=== PATIENT | male | born 1990 | race American Indian/Alaskan Native ===

== ENCOUNTER 2018-11-01 09:45 | Emergency (ER) | payer SELFPAY ==
--- NOTE | 2018-11-01 10:06 | Emergency Department Report ---
ED Upper Extremity Inj HPI - General Chief Complaint: Extremity Injury, Upper Stated Complaint: RT THUMB Time Seen by Provider: 11/01/18 10:06 Source: patient Mode of arrival: Ambulatory Limitations: No Limitations - History of Present Illness Initial Comments: Patient is a pleasant 28-year-old male who comes to the ER after playing basketball week ago and still moving his right thumb. He is concerned that it is broken. There is no other injury. -: Sudden, week(s) Other Extremity Injury: Fingers: Right Other Injuries: none Place: home Improves With: none Worsens With: none Context: sports-related injury Associated Symptoms: denies other symptoms - Related Data Allergies Allergy/AdvReac Type Severity Reaction Status Date / Time No Known Allergies Allergy Unverified 11/01/18 10:03 ED Review of Systems ROS: Stated complaint: RT THUMB Other details as noted in HPI Comment: All other systems reviewed and negative Constitutional: denies: see HPI Eyes: denies: eye pain ENT: denies: ear pain Respiratory: denies: cough Cardiovascular: denies: palpitations Endocrine: denies: flushing Gastrointestinal: denies: nausea Genitourinary: denies: urgency Musculoskeletal: as per HPI. denies: back pain Skin: denies: rash Neurological: denies: headache Psychiatric: denies: anxiety Hematological/Lymphatic: denies: easy bleeding ED Past Medical Hx - Past Medical History Additional medical history: bronchitis - Surgical History Past Surgical History?: No - Social History Smoking Status: Current Every Day Smoker Substance Use Type: Alcohol ED Physical Exam - General Limitations: No Limitations General appearance: alert - Head Head exam: Present: atraumatic - Eye Eye exam: Present: normal appearance, PERRL - ENT ENT exam: Present: mucous membranes moist - Neck Neck exam: Present: normal inspection - Cardiovascular Cardiovascular Exam: Present: regular rate - GI/Abdominal GI/Abdominal exam: Present: soft - Rectal Rectal exam: Present: deferred - Extremities Exam Extremities exam: Present: normal capillary refill - Expanded Upper Extremity Exam Right Forearm Wrist exam: Present: normal inspection Hand Wrist exam: Present: normal inspection, other (r thumb soft tissue swelling with full rom, rapid cap refill. ulnar med and rad nerves intact. ) Vascular: Present: normal capillary refill ED Course Vital Signs 11/01/18 10:03 Temperature 98.2 F Pulse Rate 74 Respiratory 18 Rate Blood Pressure 117/58 [Left] O2 Sat by Pulse 97 Oximetry ED Medical Decision Making - Radiology Data Radiology results: report reviewed, image reviewed nap - Medical Decision Making xray neg full rom neurovasc intact given swelling will immob for few days - treat with motrin follow up prn - Differential Diagnosis ro fx Critical care attestation.: If time is entered above; I have spent that time in minutes in the direct care of this critically ill patient, excluding procedure time. ED Disposition Clinical Impression: Thumb contusion Disposition: TO HOME OR SELFCARE Is pt being admited?: No Does the pt Need Aspirin: No Condition: Stable Instructions: Finger Sprain (ED) Additional Instructions: frog for 3 days ice rest elevate motrin for pain and swelling follow up with ortho if persists diet as tolerated Referrals: JERAMIE GORMAN MD [Primary Care Provider] - 3-5 Days Time of Disposition: 11:28
--- NOTE | 2018-11-01 10:41 | XRay Report ---
LEFT HAND, 3 views: History: Left thumb pain. The bony architecture is intact. Bony alignment is normal. No soft tissue abnormalities are seen. The joint spaces appear preserved. IMPRESSION: Normal left hand.
[2018-11-01 12:13] VITALS: BP 112/60
== END 2018-11-01 12:12 | disposition home or self-care (01) ==
LOC: ED 09:45
DX: S60.011A Contusion of right thumb without damage to nail, initial encounter (principal); X50.9XXA Other and unspecified overexertion or strenuous movements or postures, initial encounter; Y93.67 Activity, basketball; Y99.8 Other external cause status; Y92.019 Unspecified place in single-family (private) house as the place of occurrence of the external cause
CPT/HCPCS: 99283

== ENCOUNTER 2018-11-09 00:59 | Inpatient (IN) | payer SELFPAY ==
[2018-11-09 02:20] LABS: Hematocrit 49.4 % (35.5-45.6); Hemoglobin 16.8 gm/dl (11.8-15.2); Mean Corpuscular HGB Conc 34 % (32-34); Mean Corpuscular Volume 95 fl (84-94); Platelet Count 215 K/mm3 (140-440); Red Blood Count 5.21 M/mm3 (3.65-5.03); Red Cell Distribution Width 13.4 % (13.2-15.2)
--- NOTE | 2018-11-09 02:50 | XRay Report ---
FINAL REPORT EXAM: XRAY CHEST 2 VIEWS HISTORY: CHEST PAIN TECHNIQUE: PA and lateral views of the chest were submitted. FINDINGS: The lungs are clear. Pleural fluid is not seen. The heart size and vascularity appear normal. The ske letal structures are well-maintained. IMPRESSION: Within normal limits.
[2018-11-09 03:33] LABS: Alanine Aminotransferase 23 units/L (7-56); Albumin 3.8 g/dL (3.9-5); BUN/Creatinine Ratio 16; Blood Urea Nitrogen 14 mg/dL (9-20); Hemolysis Index 82
[2018-11-09 03:50] LABS: Chol/HDL Ratio 2.94 %; HDL Cholesterol 54 mg/dL (40-59); LDL Cholesterol,Direct 98 mg/dL (50-130)
[2018-11-09] MEDS ORDERED: NITROSTAT SL ONE (04:29)
[2018-11-09] MEDS ORDERED: BABY ASPIRIN PO ONE (04:30)
--- NOTE | 2018-11-09 04:40 | Emergency Department Report ---
ED Chest Pain HPI - General Chief Complaint: Chest Pain Stated Complaint: CP/BACK PAIN Time Seen by Provider: 11/09/18 03:55 Source: patient Mode of arrival: Ambulatory Limitations: No Limitations - History of Present Illness Initial Comments: 28-year-old male presents to the emergency department with complaint of chest and back pain. Patient says that it started off with back pain 2 days ago, Thursday. He denies any trauma or event where he pulled out his back. Yesterday he still felt like the back was painful but started having some midsternal to left-sided chest pain at that time. It is a dull but intense pain but he describes it as 7 out of 10 in intensity. There are no known aggravating or alleviating factors. He tried some ibuprofen for his pain without relief. Associated with some shortness of breath. Denies any nausea, vomiting or diaphoresis. He is a tobacco smoker but denies any illicit drug use. No recent travel or sick contacts at home. He denies any family history of early cardiac disease or events. - Related Data Home Medications Medication Instructions Recorded Confirmed Last Taken No Known Home Medications [No 11/09/18 11/09/18 Unknown Reported Home Medications] Allergies Allergy/AdvReac Type Severity Reaction Status Date / Time No Known Allergies Allergy Verified 11/09/18 05:21 Heart Score - HEART Score History: Slightly suspicious EKG: Non-specific Age: < 45 Risk factors: 1-2 risk factors Troponin: > 3x normal limit HEART Score: 4 - Critical Actions Critical Actions: 4-6 pts:12-16.6% risk of adverse cardiac event. Should be admitted ED Review of Systems ROS: Stated complaint: CP/BACK PAIN Other details as noted in HPI Comment: All other systems reviewed and negative Constitutional: denies: chills, fever Eyes: denies: eye pain, vision change ENT: denies: ear pain, throat pain Respiratory: shortness of breath. denies: cough Cardiovascular: chest pain. denies: palpitations Gastrointestinal: denies: abdominal pain, vomiting Genitourinary: denies: dysuria, discharge Musculoskeletal: back pain. denies: arthralgia Skin: denies: rash, lesions Neurological: denies: headache, weakness ED Past Medical Hx - Past Medical History Additional medical history: bronchitis - Social History Smoking Status: Current Every Day Smoker Substance Use Type: Alcohol - Medications Home Medications: Home Medications Medication Instructions Recorded Confirmed Last Taken Type No Known Home Medications [No 11/09/18 11/09/18 Unknown History Reported Home Medications] ED Physical Exam - General Limitations: No Limitations - Other Other exam information: GENERAL: The patient is well-developed well-nourished. HEENT: Normocephalic. Atraumatic. Patient has moist mucous membranes. EYES: Extraocular motions are intact. NECK: Supple. Trachea is midline. CHEST/LUNGS: Clear to auscultation. There is no respiratory distress noted. HEART/CARDIOVASCULAR: Regular. There is no tachycardia. There is no obvious murmur. ABDOMEN: Abdomen is soft, nontender. Patient has normal bowel sounds. There is no abdominal distention. SKIN: Skin is warm and dry. NEURO: The patient is awake, alert, and oriented. The patient is cooperative. The patient has no focal neurologic deficits. The patient has normal speech. MUSCULOSKELETAL: There is no tenderness or deformity. There is no limitation range of motion. There is no evidence of acute injury. ED Course Vital Signs 11/09/18 11/09/18 11/09/18 01:07 01:17 04:18 Temperature 98.8 F Pulse Rate 82 Respiratory 18 Rate Blood Pressure 126/72 O2 Sat by Pulse 71 L 100 100 Oximetry 11/09/18 11/09/18 11/09/18 04:31 04:45 04:50 Temperature Pulse Rate 80 81 77 Respiratory 18 23 Rate Blood Pressure 144/80 134/70 136/68 O2 Sat by Pulse 99 99 Oximetry 11/09/18 11/09/18 11/09/18 04:58 05:01 05:15 Temperature Pulse Rate 71 71 Respiratory 18 19 21 Rate Blood Pressure 135/70 126/69 O2 Sat by Pulse 99 95 Oximetry 11/09/18 11/09/18 05:31 05:45 Temperature Pulse Rate 76 74 Respiratory 15 14 Rate Blood Pressure 131/72 133/77 O2 Sat by Pulse 96 98 Oximetry - Consultations Consultation #1: I spoke with the [employer] information technology intern, Dr. Molina, regarding the patient's elevated troponin levels and EKG showing some nonspecific changes. He agrees that it does not appear consistent with an ST elevation NC and does agree with the plan for heparin. 11/09/18 06:06 RACHELLE score - Rachelle Score Age > 65: (0) No Aspirin use within the Past 7 Days: (0) No 3 or more CAD Risk Factors: (0) No 2 or more Angina events in past 24 hrs: (1) Yes Known CAD with more than 50% Stenosis: (0) No Elevated Cardiac Markers: (1) Yes ST Deviation Greater than 0.5mm: (1) Yes RACHELLE Score: 3 ED Medical Decision Making - Lab Data Result diagrams: 11/09/18 02:01 11/09/18 02:01 - EKG Data -: EKG Interpreted by Me EKG shows normal: sinus rhythm, axis, intervals, QRS complexes, ST-T waves (nonspecific ST-T changes to the inferior and lateral leads) Rate: normal - EKG Data When compared to previous EKG there are: previous EKG unavailable Interpretation: nonspecific ST-T wave gisele - Radiology Data Radiology results: image reviewed interpreted by me: Chest x-ray does not show any pneumothorax, pleural effusion, pneumonia or obvious focal consolidation. - Medical Decision Making Patient presents with a two-day history of some left-sided back pain and a one day history of left-sided chest pain. EKG does not show ST elevation NC but could have a an appearance more consistent with pericarditis. However the patient's physical examination and complaints do not sound as consistent with pericarditis. The patient's only risk factor for coronary artery disease is tobacco use. His first troponin to come back elevated and are trending slightly upwards. Patient says that he did not get much relief from a sublingual nitroglycerin. He was placed on a heparin drip and will be admitted to the hospital for further evaluation and cardiology consultation. Patient was accepted for admission by the hospitalist, Dr. Barajas. - Differential Diagnosis NC, PE, Pericarditis, Costochondritis Critical Care Time: Yes Critical care time in (mins) excluding proc time.: 35 Critical care attestation.: If time is entered above; I have spent that time in minutes in the direct care of this critically ill patient, excluding procedure time. Critical care time spent on this patient during his initial evaluation, multiple re-evaluations, ordering and interpretation of labs and imaging, discussion with the radiologist and hospitalist services. Critical Care Time: 35 minutes ED Disposition Clinical Impression: NSTEMI (non-ST elevated myocardial infarction), Acute chest pain, Elevated troponin Disposition: OP ADMIT IP TO THIS HOSP Is pt being admited?: Yes Condition: Serious Instructions: Chest Pain (ED) Referrals: MARYCHUY ISRAEL MD [Primary Care Provider] - 3-5 Days Time of Disposition: 06:22
[2018-11-09] MEDS ORDERED: HEPARIN 10,000 UNITS/10 ML IV ONE (05:18)
[2018-11-09 05:41] LABS: INR 0.92 (0.87-1.13)
[2018-11-09 05:42] LABS: Partial Thromboplastin Time 25.4 Sec. (24.2-36.6)
--- NOTE | 2018-11-09 05:46 | History and Physical Report ---
History of Present Illness Date of examination: 11/09/18 History of present illness: 28-year-old male with no medical problems and comes emergency room with complaints of chest pain. His symptoms started on Thursday when he had left back pain, all day Thursday started having chest pain. Chest pain is in the left chest, throbbing, constant, no radiation, intensity 6/10, cannot identify exacerbating factor. He had persistent shortness of breath, diaphoresis, nausea. Admits that he is left arm went numb Review of systems Constitutional: no weight loss, chills, fever Ears, eyes, nose, mouth and throat: no nasal congestion, no nasal discharge, no sinus pressure, no vision change, no red eye. Neck: No neck pain or rigidity. Cardiovascular: no palpitations, +chest pain Respiratory: no cough, +shortness of breath Gastrointestinal: no hematochezia, abdominal pain Genitourinary : no frequency , no hematuria Musculoskeletal: no joint swelling or muscle ache Integumentary: no rash, no pruritis Neurological: no parathesias, no focal weakness Endocrine: no cold or heat intolerance, no polyuria or polydipsia Hematologic/Lymphatic: no easy bruising, no easy bleeding, no gland swelling Allergic/Immunologic: no urticaria, no angioedema. PAST MEDICAL HISTORY: None PAST SURGICAL HISTORY: None SOCIAL HISTORY: + alcohol, marijuana,+ tobacco FAMILY HISTORY: Hypertension Medications and Allergies Allergies Allergy/AdvReac Type Severity Reaction Status Date / Time No Known Allergies Allergy Verified 11/09/18 05:21 Home Medications Medication Instructions Recorded Confirmed Last Taken Type RX: Aspirin [Lo-Dose Aspirin EC] 81 mg PO DAILY #90 tablet. 11/09/18 Unknown Rx Active Meds: Active Medications Heparin Sodium/Sodium Chloride (Heparin/ 0.45% Nacl-25,000 Unit/500 Ml) 25,000 unit in 500 mls @ 20 mls/hr IV TITRATE [facility]; Protocol Last Admin: 11/09/18 05:39 Dose: 15 units/kg/hr, 24.33 mls/hr Documented by: Exam - Physical Exam Narrative exam: General Apperance: The patient lying in bed, breathing comfortable HEENT: Normocephalic, atraumatic. Pupils equally round and reactive to light, EOMI, no sclericterus or JVD or thyromegaly or nodule. , no carotid bruit, mucous membranes moist, no exudate or erythema Heart: S1-S2, regular is rhythm Lungs: Clear to auscultation bilaterally, breathing comfortable Abdomen: Positive bowel sounds, soft, nontender, nondistended, no organomegaly Extremities: No edema cyanosis clubbing Skin: no rash, nodule, warm and dry Neuro: cranial nerves 2-12 intact, speech is fluent, motor/sensory intact - Constitutional Vitals: Temp Pulse Resp BP Pulse Ox 98.8 F 71 21 126/69 95 11/09/18 01:17 11/09/18 05:15 11/09/18 05:15 11/09/18 05:15 11/09/18 05:15 Results - Labs CBC & Chem 7: 11/09/18 02:01 11/09/18 02:01 Labs: Abnormal lab results 11/09/18 11/09/18 11/09/18 Range/Units 02:01 02:01 04:55 RBC 5.21 H (3.65-5.03) M/mm3 Hgb 16.8 H (11.8-15.2) gm/dl Hct 49.4 H (35.5-45.6) % MCV 95 H (84-94) fl Sodium 136 L (137-145) mmol/L Carbon Dioxide 16 L (22-30) mmol/L AST 50 H (5-40) units/L Troponin T 0.421 H* 0.494 H* (0.00-0.029) ng/mL Albumin 3.8 L (3.9-5) g/dL - Imaging and Cardiology EKG: image reviewed Chest x-ray: report reviewed Assessment and Plan Assessment Chestt pain doubt NSTMI Plan Admit to medicine Check cardiac enzymes, cardiology is consulted to see the patient Check CT chest abdomen and pelvis, urine toxicology Heparin drip was started and the patient Start aspirin, DVT prophylaxis
[2018-11-09] MEDS ORDERED: TYLENOL PO PRN (05:47)
[2018-11-09] MEDS ORDERED: ZOFRAN IV PRN (05:47)
[2018-11-09] MEDS ORDERED: SODIUM CHLORIDE FLUSH SYRINGE 10 ML IV PRN (05:47)
[2018-11-09] MEDS ORDERED: HEPARIN/ 0.45% NACL-25,000 UNIT/500 ML 25,000 UNIT/500 ML BAG IV SCH (06:00)
[2018-11-09] MEDS ORDERED: NACL 0.9% 1000 ML 1,000 ML IV SCH (06:00)
[2018-11-09] MEDS ORDERED: MORPHINE ONE (07:19)
[2018-11-09 07:26] LABS: Amphetamine Screen,Urine PRESUMPTIVE NEGATIVE; Benzodiazepines Screen,Urine PRESUMPTIVE NEGATIVE; Cocaine Screen,Urine PRESUMPTIVE NEGATIVE; Methadone Screen,Urine PRESUMPTIVE NEGATIVE; Opiate Screen,Urine PRESUMPTIVE NEGATIVE
[2018-11-09] MEDS: MORPHINE IV PRN ×2 (07:27→15:31)
[2018-11-09 07:39] LABS: Cannabinoid Screen,Urine PRESUMPTIVE POSITIVE
--- NOTE | 2018-11-09 08:10 | Cat Scan Report ---
FINAL REPORT EXAM: CT ANGIO CHEST HISTORY: cp TECHNIQUE: CT imaging obtained through the chest in pulmonary angiographic phase following intraveno us administration of contrast. Transaxial, Coronal and sagittal reformats with maximal intensity proj ections are provided. PRIORS: Chest radiographs of the same date FINDINGS: Normal caliber main pulmonary artery. Well opacified pulmonary arterial tree. No pulmonary embolism. No pericardial effusion. Thoracic aorta is normal in course and caliber. No periaortic fluid or stranding. No pneumothorax, effusion or focal airspace disease. The central airways are patent. No bronchiectasi s. Imaged portion of the upper abdomen is unremarkable. The superficial soft tissues are unremarkable. No acute bony abnormality or worrisome osseous lesions identified. IMPRESSION: No pulmonary embolism or other acute finding.
--- NOTE | 2018-11-09 08:14 | Cat Scan Report ---
FINAL REPORT EXAM: CT ABDOMEN PELVIS W CON HISTORY: cp TECHNIQUE: CT images are acquired through the Abdomen and Pelvis in venous and delayed phases follow ing intravenous administration of contrast. Transaxial, coronal and sagittal reformations are provide d. PRIORS: None FINDINGS: Partially visualized intrathoracic contents are unremarkable. The liver, gallbladder, pancreas, spleen, and adrenal glands are unremarkable. Kidneys show no worrisome lesions, hydronephrosis, or calculi. Urinary bladder is unremarkable. Small and large bowel are normal in caliber. Appendix is normal. No free air, free fluid, or lymphade nopathy identified. Aorta is normal in course and caliber. Superficial soft tissues are unremarkable. No acute or aggressive appearing skeletal findings. IMPRESSION: No acute findings in the abdomen or pelvis.
--- NOTE | 2018-11-09 09:10 | Consultation ---
History of Present Illness Consult date: 11/09/18 Requesting physician: DAVY THOMAS Consult reason: elevated troponin History of present illness: The pt is a 28-year-old male with a past medical history of tobacco use and marijuana use. He is previously unknown to our practice. He presented with complaints of chest pain for 2 days prior to arrival. His symptoms started on Thursday when he developed upper back pain. He began having chest pain on Thursday. He describes the chest pain as a left-sided constant throbbing pain which is sometimes aggravated by deep inspiration and coughing. He denies any SOB, palpitations, n/v, diaphoresis, dizziness or syncope. He denies any prior cardiac issues, including CAD, AMI or HF. Past History Past Medical History: No medical history Past Surgical History: No surgical history Social history: smoking, other (marijuana use) Medications and Allergies Allergies Allergy/AdvReac Type Severity Reaction Status Date / Time No Known Allergies Allergy Verified 11/09/18 05:21 Home Medications Medication Instructions Recorded Confirmed Last Taken Type No Known Home Medications [No 11/09/18 11/09/18 Unknown History Reported Home Medications] Active Meds: Active Medications Acetaminophen (Tylenol) 650 mg PO Q4H PRN PRN Reason: Pain MILD(1-3)/Fever >100.5/MOREAU Heparin Sodium/Sodium Chloride (Heparin/ 0.45% Nacl-25,000 Unit/500 Ml) 25,000 unit in 500 mls @ 20 mls/hr IV TITRATE [facility]; Protocol Last Admin: 11/09/18 05:39 Dose: 15 units/kg/hr, 24.33 mls/hr Documented by: Sodium Chloride (Nacl 0.9% 1000 Ml) 1,000 mls @ 150 mls/hr IV DIRECT [facility]BD[facility] Last Admin: 11/09/18 06:00 Dose: 150 mls/hr Documented by: Morphine Sulfate (Morphine) 2 mg IV Q4H PRN PRN Reason: Pain, Moderate (4-6) Last Admin: 11/09/18 07:27 Dose: 2 mg Documented by: Ondansetron HCl (Zofran) 4 mg IV Q8H PRN PRN Reason: Nausea And Vomiting Sodium Chloride (Sodium Chloride Flush Syringe 10 Ml) 10 ml IV BID [facility]BD[facility] Sodium Chloride (Sodium Chloride Flush Syringe 10 Ml) 10 ml IV PRN PRN PRN Reason: LINE FLUSH Review of Systems Constitutional: no weight loss, no weight gain, no fever, no chills, no sweats Ears, nose, mouth and throat: no ear pain, no nose pain, no sinus pressure, no sinus pain Cardiovascular: chest pain, no orthopnea, no palpitations, no rapid/irregular heart beat, no edema, no syncope, no lightheadedness, no shortness of breath, no dyspnea on exertion, no high blood pressure, no leg edema, no decreased exercise tolerance Respiratory: pain on inspiration, no cough, no shortness of breath, no dyspnea on exertion, no congestion, no wheezing Gastrointestinal: no abdominal pain, no nausea, no vomiting, no diarrhea, no constipation, no change in bowel habits Genitourinary Male: no dysuria, no hematuria, no flank pain, no discharge, no urinary frequency, no urinary hesitancy Musculoskeletal: no neck stiffness, no neck pain, no shooting arm pain, no arm numbness/tingling, no low back pain, no shooting leg pain Integumentary: no rash, no pruritis, no redness, no sores, no wounds Neurological: no head injury, no paralysis, no weakness, no parathesias, no numbness, no tingling, no seizures, no syncope Psychiatric: no anxiety Endocrine: no cold intolerance, no heat intolerance Hematologic/Lymphatic: no easy bruising, no easy bleeding Physical Examination Vital Signs Pulse Ox 71 L 11/09/18 01:07 General appearance: no acute distress HEENT: Positive: PERRL, Normocephaly, Mucus Membranes Moist Neck: Positive: neck supple, trachea midline Cardiac: Positive: Reg Rate and Rhythm, S1/S2 Lungs: Positive: clear to auscultation Neuro: Positive: Grossly Intact, Cranial Nerve 2-12 Intact Abdomen: Positive: Soft. Negative: Tender Male genitourinary: Negative: tender Skin: Negative: Rash, Wound Musculoskeletal: No Pain Extremities: Absent: edema Results 11/09/18 02:01 11/09/18 02:01 Cardiac Enzymes 11/09/18 Range/Units 02:01 AST 50 H (5-40) units/L Coagulation 11/09/18 Range/Units 05:18 PT 12.9 (12.2-14.9) Sec. INR 0.92 (0.87-1.13) APTT 25.4 (24.2-36.6) Sec. Lipids 11/09/18 Range/Units 02:01 Triglycerides 58 (2-149) mg/dL Cholesterol 159 (50-199) mg/dL HDL Cholesterol 54 (40-59) mg/dL Cholesterol/HDL Ratio 2.94 % CBC 11/09/18 Range/Units 02:01 WBC 9.7 (4.5-11.0) K/mm3 RBC 5.21 H (3.65-5.03) M/mm3 Hgb 16.8 H (11.8-15.2) gm/dl Hct 49.4 H (35.5-45.6) % Plt Count 215 (140-440) K/mm3 Comprehensive Metabolic Panel 11/09/18 Range/Units 02:01 Sodium 136 L (137-145) mmol/L Potassium 4.6 (3.6-5.0) mmol/L Chloride 104.6 (98-107) mmol/L Carbon Dioxide 16 L (22-30) mmol/L BUN 14 (9-20) mg/dL Creatinine 0.9 (0.8-1.5) mg/dL Glucose 95 (75-100) mg/dL Calcium 9.0 (8.4-10.2) mg/dL AST 50 H (5-40) units/L ALT 23 (7-56) units/L Alkaline Phosphatase 67 (35-129) units/L Total Protein 7.4 (6.3-8.2) g/dL Albumin 3.8 L (3.9-5) g/dL - Imaging and Cardiology Echo: pending EKG: report reviewed, image reviewed EKG interpretations - Telemetry EKG Rhythm: Sinus Rhythm - EKG Sinus rhythms and dysrhythmias: sinus rhythm Repolarization changes or abnormalities: nonspecific abnormality, ST segment, and/or T wave Assessment and Plan Obtain echo to eval for pericardial effusion. Coronary angiography recommended in setting of elevated troponin and abnormal ECG. Indications, potential risks and benefits of LHC reviewed with pt and he is agreeable to proceed. Await findings. The patient has been seen in conjunction with Dr. Duncan who agrees with the assessment and plan of care. - Patient Problems (1) Acute chest pain Current Visit: Yes Status: Acute (2) Elevated troponin Current Visit: Yes Status: Acute (3) Abnormal ECG Current Visit: Yes Status: Acute
[2018-11-09] MEDS ORDERED: SODIUM CHLORIDE FLUSH SYRINGE 10 ML IV SCH (10:00)
[2018-11-09] MEDS ORDERED: NACL 0.9% 500 ML 500 ML IV SCH (10:00)
[2018-11-09] MEDS ORDERED: CALAN ONE (11:40)
[2018-11-09] MEDS ORDERED: VERSED ONE (11:40)
[2018-11-09] MEDS ORDERED: XYLOCAINE 2% INFILTRATI ONE (11:40)
[2018-11-09] MEDS ORDERED: HEPARIN 10,000 UNITS/10 ML ONE (11:40)
[2018-11-09] MEDS ORDERED: HEPARIN/NS 5000 UNIT/500ML(CATH LAB) 1,000 ML IR ONE (11:40)
[2018-11-09] MEDS ORDERED: NACL 0.9% 500 ML 500 ML ONE (11:41)
[2018-11-09] MEDS ORDERED: NITROGLYCERIN SYRINGE 3 ML ONE (11:41)
[2018-11-09] MEDS ORDERED: ECOTRIN PO ONE (11:46)
[2018-11-09] MEDS: SUBLIMAZE ONE ×2 (12:20→12:22)
--- NOTE | 2018-11-09 13:03 | Cardiac Catherization Report ---
LEFT HEART CATHETERIZATION CLINICAL INFORMATION: This is a 28-year-old -[place] gentleman who presents with chest pain for the last 2 days with positive troponin suggestive of non-ST elevation type 2 with normal LV function in echocardiogram in view of abnormal troponin and chest pain. The patient was brought here for left heart catheterization. Left heart catheterization was done under moderate sedation, 0.5 mg Versed and 25 mcg of fentanyl. Total sedation time was 15 minutes, 12:15 and finished at 12:30 p.m. Left heart catheterization performed. The right radial artery, sterile technique, local anesthesia, 6-Lithuanian radial sheath inserted. Left system JL3.5 catheter, left main is large and patent, engaged with JL3.5 catheter. Left main is large and patent, bifurcates into large LAD, is patent from proximally and distally. Diagonal 1, 2 and 3 [id number] caliber vessel patent. Circumflex is a large codominant vessel is patent and AV groove. OM1 and OM2 are patent. OM3 is medium caliber vessel patent. RCA engaged with JR4, is a medium caliber vessel patent with a small PDA patent. LV gram done in COLT and CHEUNG view shows normal LV function, EF 55%. LVEDP 14 mmHg, LV is 105. Aortic is 103/64. No gradient across the aortic valve on pullback. 5-Lithuanian catheters all taken over guidewire, 6-Lithuanian radial sheath was discontinued. Radial band applied. No hematoma, no bleeding. SUMMARY: Normal coronaries, mixed dominance with normal LV function. This is most likely mild pericarditis as a cause of abnormal troponin and medical management. Discussed this in detail with the patient and the patient's family. JOB# [id number] ADDISON/MICHEAL
--- NOTE | 2018-11-09 13:33 | Event Note ---
Date: 11/09/18 S/p [facility] which showed normal coronaries. Echo reviewed - EF 50-55%, trace MR, trace TR, trace ND, no pericardial effusion. Currently stable cardiac status. Pt may discharge home from cardiology standpoint following completion of post cath-order set. Recommend follow up in our office with Dr. Rausch within 1-2 weeks of hospital discharge ([phone]). Chris ROSENBAUM NP / DR. RAUSCH
[2018-11-09 17:37] VITALS: BP 121/75
--- NOTE | 2018-11-10 16:19 | Discharge Summary ---
Providers - Providers Date of Admission: 11/09/18 05:47 Date of discharge: 11/09/18 Attending physician: SHARON BECK 11/09/18 04:48 Consult to Cardiology [CONS] Routine Consulting Provider: CAROLEE LOPEZ Reason For Exam: NSTEMI, Elevated troponin Primary care physician: [facility] MD [facility] Hospitalization Reason for admission: chest pain with elevated troponin levels, abnormal EKG Condition: Stable Pertinent studies: -Chest x-ray: Negative -CT abdomen and pelvis: Negative -CTA chest: Negative for PE Procedures: Left cardiac catheterization Hospital course: Final diagnoses: -Chest pain with elevated troponin levels, ACS ruled out. Exact cause unknown -Abnormal EKG On admission, patient was placed on ACS protocol. Thereafter, he underwent left cardiac catheterization which showed normal coronaries with an EF of 50-55%. Postprocedure, he was monitored without any adverse events and was then deemed stable for discharge with clinic follow-up after clearance by the cardiology team. Disposition: TO HOME OR SELFCARE Time spent for discharge: 30 Core Measure Documentation - Palliative Care Palliative Care/ Comfort Measures: Not Applicable - Core Measures Any of the following diagnoses?: none Exam - Constitutional Vitals: Temp Pulse Resp BP Pulse Ox 98 F 94 H 18 121/75 95 11/09/18 17:15 11/09/18 17:15 11/09/18 17:20 11/09/18 17:15 11/09/18 17:15 General appearance: Present: no acute distress, well-nourished - EENT Eyes: Present: PERRL, EOM intact ENT: hearing intact, clear oral mucosa - Neck Neck: Present: supple, normal ROM - Respiratory Respiratory effort: normal Respiratory: bilateral: CTA - Cardiovascular Heart Sounds: Present: S1 & S2. Absent: rub, click - Extremities Extremities: No edema Peripheral Pulses: within normal limits - Abdominal General gastrointestinal: Present: soft, non-tender, non-distended, normal bowel sounds - Integumentary Integumentary: Present: clear, warm, dry - Musculoskeletal Musculoskeletal: gait normal, strength equal bilaterally - Psychiatric Psychiatric: appropriate mood/affect, intact judgment & insight - Neurologic Neurologic: CNII-XII intact, moves all extremities Plan Follow up with: MARYCHUY ISRAEL MD [Primary Care Provider] - 3-5 Days Forms: Work/School Release Form Prescriptions: Aspirin [Lo-Dose Aspirin EC] 81 mg PO DAILY #90 tablet.
== END 2018-11-09 18:35 | disposition home or self-care (01) | DRG 282 ==
LOC: ED 00:59 → IMCU 05:47 → 4A 10:48
PROVIDERS: ADMIT Internal Medicine; ATTEND Internal Medicine
PROC: 4A023N7 Measurement of Cardiac Sampling and Pressure, Left Heart, Percutaneous Approach (ICD-10-PCS; principal; 2018-11-09)
PROC: B2111ZZ Fluoroscopy of Multiple Coronary Arteries using Low Osmolar Contrast (ICD-10-PCS; 2018-11-09)
PROC: B2151ZZ Fluoroscopy of Left Heart using Low Osmolar Contrast (ICD-10-PCS; 2018-11-09)
DX: I21.A1 Myocardial infarction type 2 (principal); F17.200 Nicotine dependence, unspecified, uncomplicated; F12.90 Cannabis use, unspecified, uncomplicated; F17.210 Nicotine dependence, cigarettes, uncomplicated; I08.1 Rheumatic disorders of both mitral and tricuspid valves; Z82.49 Family history of ischemic heart disease and other diseases of the circulatory system
CPT/HCPCS: 36415; 71046; 71275; 74177; 80053; 80061; 80307; 84484; 85027; 85379; 85610; 85730; 93005; 93010; 93306; 93458; 96361; 96374; 96375; G0378; C1894; J1644; J2250; J2270; J3010; J7030; J7040; Q9967

== ENCOUNTER 2020-10-05 14:14 | Emergency (ER) | payer OTHER ==
[2020-10-05 14:34] VITALS: BP 129/83
[2020-10-05] MEDS ORDERED: ONDANSETRON 4 MG ODT TAB PO ONE (14:46)
[2020-10-05] MEDS ORDERED: ONDANSETRON 4 MG ODT TAB ONE (14:46)
--- NOTE | 2020-10-05 14:50 | Emergency Department Report ---
Vomiting/Diarrhea - HPI Chief Complaint: Nausea/Vomiting/Diarrhea Stated Complaint: ABD PAINS Duration: Today Nausea/Vomiting Severity: Mild Diarrhea Severity: Mild Pain Location: Periumbilical Pain Severity: None Symptoms: Yes Watery Diarrhea, No Bloody diarrhea, No Fever, No Able to Tolerate Fluids, No Recent Unusual Foods, No Recent Untreated Water, No Recent use of Antibiotics, No Family w/ Similar Symptoms, No Contacts w/ Similar Symptoms, No Rash, No Hematuria, No Recent URI Symptoms Other History: 30-year-old -[place] male with a history of asthma presents to the emergency room for acute vomiting diarrhea and abdominal pain. Patient states that it started about 11 AM. He is denies any pain at this time. Last vomited 2 hours ago. Reports a history of hemorrhoids but no problem with that. Last Covid test was -2 months ago. Denies any dysuria no penile discharge no hematuria. ED Review of Systems ROS: Stated complaint: ABD PAINS Other details as noted in HPI Comment: All other systems reviewed and negative ED Past Medical Hx - Past Medical History Hx Asthma: Yes Additional medical history: bronchitis - Social History Smoking Status: Never Smoker Substance Use Type: Marijuana - Medications Home Medications: Home Medications Medication Instructions Recorded Confirmed Last Taken Type Aspirin [Lo-Dose Aspirin EC] 81 mg PO DAILY #90 tablet. 11/09/18 Unknown Rx Ondansetron [Zofran Odt] 4 mg PO Q8HR #12 tab.rapdis 10/05/20 Unknown Rx Vomiting Diarrhea Exam - Exam General: Vital signs noted. No distress. Alert and acting appropriately. HEENT: Yes Moist Mucous Membranes, No Pharyngeal Erythema, No Pharyngeal Exudates, No Rhinorrhea, No Conjuctival Injection, No Frontal Tenderness, No Maxillary Tenderness Neck: No Adenopathy, No Rigidity Lungs: Yes Clear Lung Sounds, Yes Good Air Exchange, No Wheezes, No Stridor, No Cough, No Nasal Flaring, No Retractions, No Use of Accessory Muscles Heart exam: Regular: Yes, Murmur: No, Tachycardia: No Neurologic: Alert and oriented, no deficits. Musculoskeletal: Unremarkable. ED Course Vital Signs 10/05/20 14:33 Temperature 97.7 F Pulse Rate 78 Respiratory 18 Rate Blood Pressure 129/83 O2 Sat by Pulse 99 Oximetry ED Medical Decision Making - Medical Decision Making 30-year-old -[place] male with a history of asthma presents to the emergency room for acute vomiting diarrhea and abdominal pain. Patient states that it started about 11 AM. He is denies any pain at this time. Last vomited 2 hours ago. Reports a history of hemorrhoids but no problem with that. Last Covid test was -2 months ago. Denies any dysuria no penile discharge no hematuria. Patient was given Zofran 4 mg. Discussed with patient to start a p.o. challenge in 30 minutes. Critical care attestation.: If time is entered above; I have spent that time in minutes in the direct care of this critically ill patient, excluding procedure time. ED Disposition Clinical Impression: Nausea & vomiting Qualifiers: Vomiting type: unspecified Vomiting Intractability: intractable Qualified Code(s): R11.2 - Nausea with vomiting, unspecified Disposition: DC-01 TO HOME OR SELFCARE Is pt being admited?: No Does the pt Need Aspirin: No Condition: Stable Additional Instructions: Please take Zofran as needed for nausea and vomiting. You can try evab-[id number]-[id number] Imodium for diarrhea. Follow-up with your primary care provider. Prescriptions: Ondansetron [Zofran Odt] 4 mg PO Q8HR #12 tab.rapdis Forms: Work/School Release Form(ED)
== END 2020-10-05 16:15 | disposition home or self-care (01) ==
LOC: ED 14:14
DX: R11.2 Nausea with vomiting, unspecified (principal); F12.10 Cannabis abuse, uncomplicated; Z79.899 Other long term (current) drug therapy
CPT/HCPCS: 99282; Q0162

== ENCOUNTER 2021-07-10 21:31 | Emergency (ER) | payer OTHER ==
[2021-07-10 21:53] VITALS: BP 146/92
[2021-07-10] MEDS ORDERED: ALBUTEROL 2.5 MG/3 ML NEBU IH ONE (22:04)
[2021-07-10] MEDS ORDERED: predniSONE 50 MG TAB PO STA (22:05)
[2021-07-10] MEDS ORDERED: diphenhydrAMINE 50 MG/ML VIAL IM ONE (22:07)
[2021-07-10] MEDS ORDERED: IPRATROPIUM 0.02% NEBU 2.5 ML IH ONE (22:07)
--- NOTE | 2021-07-10 22:09 | Emergency Department Report ---
ED Asthma HPI - General Chief Complaint: Chest Pain Stated Complaint: WHEZZING,CHEST PAIN Time Seen by Provider: 07/10/21 22:01 Source: patient Mode of arrival: Ambulatory Limitations: No Limitations - History of Present Illness MD Complaint: shortness of breath, wheezing -: Gradual, week(s) (1) Severity: mild, moderate Associated Symptoms: none Treatments Prior to Arrival: inhaled bronchodilator - Related Data Previous Rx's Medication Instructions Recorded Last Taken Type Aspirin [Lo-Dose Aspirin EC] 81 mg PO DAILY #90 tablet. 11/09/18 Unknown Rx Albuterol Sulfate [Proventil Hfa] 6.7 gm IH QID PRN #1 hfa.aer.ad 10/05/20 Unknown Rx Ondansetron [Zofran Odt] 4 mg PO Q8HR #12 tab.rapdis 10/05/20 Unknown Rx ALBUTEROL NEB's [Proventil 0.083% 2.5 mg IH TID PRN #30 neb 07/11/21 Unknown Rx NEBS] Albuterol Mdi (or & Nicu Only) 2 puff IH QID PRN #1 inhalation 07/11/21 Unknown Rx [ProAir HFA Inhaler] Benzonatate [Tessalon Perles] 100 mg PO Q8HR #20 capsule 07/11/21 Unknown Rx Montelukast [Singulair] 10 mg PO QPM #14 tablet 07/11/21 Unknown Rx Nebulizer and Compressor 1 each MC DAILY PRN #1 each 07/11/21 Unknown Rx [Compressor Nebulizer System] predniSONE [Deltasone] 50 mg PO QDAY #5 tab 07/11/21 Unknown Rx Allergies Allergy/AdvReac Type Severity Reaction Status Date / Time No Known Allergies Allergy Verified 10/05/20 14:30 ED Review of Systems ROS: Stated complaint: WHEZZING,CHEST PAIN Other details as noted in HPI Comment: All other systems reviewed and negative ED Past Medical Hx - Past Medical History Previous Medical History?: Yes Hx Asthma: Yes Additional medical history: bronchitis - Surgical History Past Surgical History?: No - Social History Smoking Status: Never Smoker Substance Use Type: Marijuana - Medications Home Medications: Home Medications Medication Instructions Recorded Confirmed Last Taken Type Aspirin [Lo-Dose Aspirin EC] 81 mg PO DAILY #90 tablet. 11/09/18 Unknown Rx Albuterol Sulfate [Proventil Hfa] 6.7 gm IH QID PRN #1 hfa.aer.ad 10/05/20 Unknown Rx Ondansetron [Zofran Odt] 4 mg PO Q8HR #12 tab.rapdis 10/05/20 Unknown Rx ALBUTEROL NEB's [Proventil 0.083% 2.5 mg IH TID PRN #30 neb 07/11/21 Unknown Rx NEBS] Albuterol Mdi (or & Nicu Only) 2 puff IH QID PRN #1 inhalation 07/11/21 Unknown Rx [ProAir HFA Inhaler] Benzonatate [Tessalon Perles] 100 mg PO Q8HR #20 capsule 07/11/21 Unknown Rx Montelukast [Singulair] 10 mg PO QPM #14 tablet 07/11/21 Unknown Rx Nebulizer and Compressor 1 each MC DAILY PRN #1 each 07/11/21 Unknown Rx [Compressor Nebulizer System] predniSONE [Deltasone] 50 mg PO QDAY #5 tab 07/11/21 Unknown Rx ED Physical Exam - General Limitations: No Limitations General appearance: alert, in no apparent distress - Head Head exam: Present: atraumatic, normocephalic - Eye Eye exam: Present: normal appearance - ENT ENT exam: Present: mucous membranes moist - Neck Neck exam: Present: normal inspection - Respiratory Respiratory exam: Present: normal lung sounds bilaterally, wheezes, rhonchi. Absent: respiratory distress, chest wall tenderness, decreased breath sounds - Cardiovascular Cardiovascular Exam: Present: regular rate, normal rhythm. Absent: systolic murmur, diastolic murmur, rubs, gallop - GI/Abdominal GI/Abdominal exam: Present: soft, normal bowel sounds - Rectal Rectal exam: Present: deferred - Extremities Exam Extremities exam: Present: normal inspection - Back Exam Back exam: Present: normal inspection - Neurological Exam Neurological exam: Present: alert, oriented X3 - Psychiatric Psychiatric exam: Present: normal affect, normal mood - Skin Skin exam: Present: warm, dry, intact, normal color. Absent: rash ED Course Vital Signs 07/10/21 21:49 Temperature 98.0 F Pulse Rate 91 H Respiratory 18 Rate Blood Pressure 146/92 O2 Sat by Pulse 95 Oximetry - Reevaluation(s) Reevaluation #1: 07/11/21 23:41 Breathing improved after breathing treatment coughing has resolved patient speaking in full sentences no significant respiratory distress Reevaluation #2: 07/11/21 00:50 Patient has continued to maintain normal respiratory status and improvement in his breathing 1 time feels comfortable with pain discharge home ED Medical Decision Making - Radiology Data Radiology results: report reviewed Chest x-ray is clear - Medical Decision Making No altered mental status, saddle respirations, belly breathing or other signs of impending ventilatory failure. No intubations or recent admissions to the hospital for asthma. Unlikely pneumonia, CHF, COPD, GERD Workup Review include a chest x-ray which was normal she also received steroids and albuterol Therapies: Prednisone 50 mg PO. Albuterol nebulizer Reassessment: Patient improved with albuterol and ipratropium in less than 3 hours. Disposition: Discharge home with return precautions. Advised to follow up with primary care physician within next 24-48 hours. Aside from this acute exacerbation patient has been well controlled on baseline home regimen. Rx short steroid course, albuterol, Singulair, Flovent Critical care attestation.: If time is entered above; I have spent that time in minutes in the direct care of this critically ill patient, excluding procedure time. ED Disposition Clinical Impression: Asthma, Cough, Bronchitis Disposition: 01 HOME / SELF CARE / HOMELESS Is pt being admited?: No Does the pt Need Aspirin: No Condition: Stable Instructions: Asthma (ED), Chronic Bronchitis (ED), Cough, Adult, [id number], Peak Flow Meter, Asthma, Adult, Cool Mist Vaporizer, Asthma Attack, Cough, Adult Prescriptions: Nebulizer and Compressor [Compressor Nebulizer System] 1 each MC DAILY PRN #1 each PRN Reason: asthma predniSONE [Deltasone] 50 mg PO QDAY #5 tab Albuterol Mdi (or & Nicu Only) [ProAir HFA Inhaler] 2 puff IH QID PRN #1 inhalation PRN Reason: Shortness Of Breath ALBUTEROL NEB's [Proventil 0.083% NEBS] 2.5 mg IH TID PRN #30 neb PRN Reason: Wheezing Montelukast [Singulair] 10 mg PO QPM #14 tablet Benzonatate [Tessalon Perles] 100 mg PO Q8HR #20 capsule Referrals: PRIMARY CARE, [Primary Care Provider] - 3-5 Days [facility] [Provider Group] - 3-5 Days
--- NOTE | 2021-07-10 23:31 | XRay Report ---
CHEST 2 VIEWS INDICATION / CLINICAL INFORMATION: sob. COMPARISON: 11/09/2018 FINDINGS: SUPPORT DEVICES: None. HEART / MEDIASTINUM: No significant abnormality. LUNGS / PLEURA: No significant pulmonary or pleural abnormality. No pneumothorax. ADDITIONAL FINDINGS: No significant additional findings. IMPRESSION: 1. No acute findings. Signer Name: Eliu Roger DO Signed: 07/10/2021 11:26 PM Workstation Name: [id number]
--- NOTE | 2021-07-11 11:55 | Electrocardiograph Report ---
[facility] Test Date: 2021-07-10 Test Time: 21:43:29 Pat Name: FRANCO PALMER Department: Room: Gender: M [employer]: KYARA : 1990 Requested By: KARMA ROBLERO III Order Number: [id number] Reading MD: Jorge Fair Measurements Intervals [place] Rate: 83 P: 80 [place]: 143 QRS: 49 QRSD: 94 T: 31 QT: 353 QTc: 414 Interpretive Statements Sinus rhythm No previous ECG available for comparison Electronically Signed On 07-11-2021 11:55:25 EDT by Jorge Fair
== END 2021-07-11 01:11 | disposition home or self-care (01) ==
LOC: ED 21:31
DX: J45.909 Unspecified asthma, uncomplicated (principal); R05.9 Cough, unspecified
CPT/HCPCS: 71046; 93005; 94640; 96372; 99283; J1200; J7512

== ENCOUNTER 2021-10-24 19:38 | Emergency (ER) | payer OTHER ==
[2021-10-24 22:35] VITALS: BP 125/63
[2021-10-24] MEDS ORDERED: IPRATROPIUM/ALBUTEROL SULFATE 3 ML AMPUL.NEB IH ONE (23:41)
[2021-10-24] MEDS ORDERED: predniSONE 20 MG TAB PO ONE (23:41)
--- NOTE | 2021-10-25 00:07 | XRay Report ---
CHEST 1 VIEW INDICATION / CLINICAL INFORMATION: dyspnea, cough. COMPARISON: 07/10/2021 FINDINGS: SUPPORT DEVICES: None. HEART / MEDIASTINUM: No significant abnormality. LUNGS / PLEURA: No significant pulmonary or pleural abnormality. No pneumothorax. ADDITIONAL FINDINGS: No significant additional findings. IMPRESSION: 1. No acute findings. No interval change. Signer Name: Catalina Polanco MD Signed: 10/25/2021 12:02 AM Workstation Name: [id number]
--- NOTE | 2021-10-25 00:43 | Emergency Department Report ---
ED Shortness of Breath HPI - General Chief Complaint: Adult Asthma Stated Complaint: ONESIMO/ASTHMA Source: patient Mode of arrival: Ambulatory Limitations: No Limitations - History of Present Illness Initial Comments: Patient is a 31-year-old -[place] male with a history of asthma who presented to the ED with complaint of acute onset persistent nasal and sinus congestion, persistent dry cough and wheezing with shortness of breath for the last 3 days. Patient states that he ran out of his albuterol inhaler and nebulizers about a week ago and has not been able to use any medication. Patient states that the symptoms have worsened especially in the last 12 hours. Patient denies fever, chills, chest pain, dizziness, syncope, sore throat, abdominal pain, nausea and vomiting, palpitations, change in vision or ear pain and neck pain. MD Complaint: shortness of breath, cough, "asthma attack" -: Sudden, days(s) (3) Severity: moderate Pain Scale: 4 Quality: other (Chest tightness) Consistency: constant Improves With: bronchodilators, other (Ran out of bronchodilator medications a week ago) Worsens With: nothing Known History Of: asthma Context: recent URI, allergen exposure Associated Symptoms: cough Treatments Prior to Arrival: none - Related Data Home Oxygen Therapy: No Previous Rx's Medication Instructions Recorded Last Taken Type Aspirin [Lo-Dose Aspirin EC] 81 mg PO DAILY #90 tablet. 11/09/18 Unknown Rx Ondansetron [Zofran Odt] 4 mg PO Q8HR #12 tab.rapdis 10/05/20 Unknown Rx Albuterol Mdi (or & Nicu Only) 2 puff IH QID PRN #1 inhalation 07/11/21 Unknown Rx [ProAir HFA Inhaler] Nebulizer and Compressor 1 each MC DAILY PRN #1 each 07/11/21 Unknown Rx [Compressor Nebulizer System] predniSONE [Deltasone] 50 mg PO QDAY #5 tab 07/11/21 Unknown Rx ALBUTEROL NEB's [Proventil 0.083% 3 ml IH TID PRN #75 ml 10/25/21 Unknown Rx NEBS] Albuterol Sulfate [Proventil Hfa] 6.7 gm IH QID PRN #1 hfa.aer.ad 10/25/21 Unknown Rx Benzonatate [Tessalon Perles] 100 mg PO Q8HR #30 capsule 10/25/21 Unknown Rx Montelukast [Singulair] 10 mg PO QPM #30 tablet 10/25/21 Unknown Rx Prednisone [predniSONE 10 mg 10 mg PO .TAPER #21 10/25/21 Unknown Rx (6-Day Pack, 21 Tabs)] Allergies Allergy/AdvReac Type Severity Reaction Status Date / Time No Known Allergies Allergy Verified 10/05/20 14:30 ED Review of Systems ROS: Stated complaint: ONESIMO/ASTHMA Other details as noted in HPI Constitutional: denies: chills, fever Eyes: denies: eye pain, eye discharge, vision change ENT: congestion. denies: ear pain, throat pain Respiratory: cough, shortness of breath, wheezing Cardiovascular: denies: chest pain, palpitations Endocrine: no symptoms reported Gastrointestinal: denies: abdominal pain, nausea, diarrhea Genitourinary: denies: urgency, dysuria Musculoskeletal: denies: back pain, joint swelling, arthralgia Skin: denies: rash, lesions Neurological: denies: headache, weakness, paresthesias Psychiatric: denies: anxiety, depression Hematological/Lymphatic: denies: easy bleeding, easy bruising ED Past Medical Hx - Past Medical History Previous Medical History?: Yes Hx Asthma: Yes Additional medical history: bronchitis - Surgical History Past Surgical History?: No - Social History Smoking Status: Never Smoker Substance Use Type: Marijuana - Medications Home Medications: Home Medications Medication Instructions Recorded Confirmed Last Taken Type Aspirin [Lo-Dose Aspirin EC] 81 mg PO DAILY #90 tablet. 11/09/18 Unknown Rx Ondansetron [Zofran Odt] 4 mg PO Q8HR #12 tab.rapdis 10/05/20 Unknown Rx Albuterol Mdi (or & Nicu Only) 2 puff IH QID PRN #1 inhalation 07/11/21 Unknown Rx [ProAir HFA Inhaler] Nebulizer and Compressor 1 each MC DAILY PRN #1 each 07/11/21 Unknown Rx [Compressor Nebulizer System] predniSONE [Deltasone] 50 mg PO QDAY #5 tab 07/11/21 Unknown Rx ALBUTEROL NEB's [Proventil 0.083% 3 ml IH TID PRN #75 ml 10/25/21 Unknown Rx NEBS] Albuterol Sulfate [Proventil Hfa] 6.7 gm IH QID PRN #1 hfa.aer.ad 10/25/21 Unknown Rx Benzonatate [Tessalon Perles] 100 mg PO Q8HR #30 capsule 10/25/21 Unknown Rx Montelukast [Singulair] 10 mg PO QPM #30 tablet 10/25/21 Unknown Rx Prednisone [predniSONE 10 mg 10 mg PO .TAPER #21 10/25/21 Unknown Rx (6-Day Pack, 21 Tabs)] ED Physical Exam - General Limitations: No Limitations General appearance: alert, in no apparent distress - Head Head exam: Present: atraumatic, normocephalic, normal inspection - Eye Eye exam: Present: normal appearance, PERRL, EOMI Pupils: Present: normal accommodation - ENT ENT exam: Present: normal orophraynx, mucous membranes moist, TM's normal bilaterally, normal external ear exam, other (Grossly congested nasal passages) - Neck Neck exam: Present: normal inspection, full ROM. Absent: tenderness - Respiratory Respiratory exam: Present: wheezes (Mildly diffuse coarse wheezes throughout). Absent: normal lung sounds bilaterally, respiratory distress, rales, rhonchi, decreased breath sounds - Cardiovascular Cardiovascular Exam: Present: regular rate, normal rhythm, normal heart sounds. Absent: systolic murmur, diastolic murmur, rubs, gallop - GI/Abdominal GI/Abdominal exam: Present: soft, normal bowel sounds. Absent: tenderness, guarding, rebound, hyperactive bowel sounds, hypoactive bowel sounds, organomegaly, mass - Extremities Exam Extremities exam: Present: normal inspection, full ROM, normal capillary refill - Back Exam Back exam: Present: normal inspection, full ROM. Absent: tenderness, CVA tenderness (R), CVA tenderness (L), muscle spasm, paraspinal tenderness - Neurological Exam Neurological exam: Present: alert, oriented X3, CN II-XII intact, normal gait, reflexes normal - Psychiatric Psychiatric exam: Present: normal affect, normal mood - Skin Skin exam: Present: warm, dry, intact, normal color. Absent: rash ED Course Vital Signs 10/24/21 19:44 Temperature 98.6 F Pulse Rate 76 Respiratory 18 Rate Blood Pressure 125/63 O2 Sat by Pulse 95 Oximetry ED Medical Decision Making - Radiology Data Radiology results: report reviewed, image reviewed [facility] [address] [place] [address] XRay Report Signed Patient: FRANCO PALMER MR#: [id number] : 1990 Acct:[id number] Age/Sex: 31 / M ADM Date: 10/24/21 Loc: ED Attending Dr: Ordering Physician: LORI DAN Date of Service: 10/24/21 Procedure(s): XR chest 1V ap Accession Number(s): [id number] cc: LORI ADN Fluoro Time In Minutes: CHEST 1 VIEW INDICATION / CLINICAL INFORMATION: dyspnea, cough. COMPARISON: 07/10/2021 FINDINGS: SUPPORT DEVICES: None. HEART / MEDIASTINUM: No significant abnormality. LUNGS / PLEURA: No significant pulmonary or pleural abnormality. No pneumothorax. ADDITIONAL FINDINGS: No significant additional findings. IMPRESSION: 1. No acute findings. No interval change. Signer Name: Catalina Polanco MD Signed: 10/25/2021 12:02 AM Workstation Name: [id number] Transcribed By: JR Dictated By: Catalina Polanco MD Electronically Authenticated By: Catalina Polanco MD Signed Date/Time: 10/25/21 0002 DD/ 0001 TD/TT: - Medical Decision Making This is a 31-year-old -[place] male with a history of asthma who presented to the ED with complaint of acute onset persistent nasal and sinus congestion, persistent dry cough and wheezing with shortness of breath for the last 3 days. Patient states that he ran out of his albuterol inhaler and nebulizers about a week ago and has not been able to use any medication. Patient states that the symptoms have worsened especially in the last 12 hours. In the ED, patient is alert and oriented x3 and is not in any distress. Patient is hemodynamically stable. Patient was treated for shortness of breath with DuoNeb and prednisone in the ED. Chest x-ray showed no acute cardiopulmonary abnormalities or pneumonitis. On reevaluation, patient wheezing resolved, patient oxygen saturation remained between 96 to 98% in room air. Patient was discharged home on a prescription of albuterol inhaler and nebulizers as well as steroid Dosepak and cough medications. Patient was advised to follow-up with his primary care physician in 5 to 7 days for reevaluation or return to the ED immediately if symptoms get worse. - Differential Diagnosis Asthma; bronchitis; pneumonia; URI; Critical care attestation.: If time is entered above; I have spent that time in minutes in the direct care of this critically ill patient, excluding procedure time. ED Disposition Clinical Impression: Acute bronchitis with asthma with acute exacerbation, Shortness of breath Disposition: 01 HOME / SELF CARE / HOMELESS Is pt being admited?: No Does the pt Need Aspirin: No Condition: Stable Instructions: Shortness of Breath, Adult, [id number], Cough, Adult, [id number], Acute Bronchitis, Adult, [id number], Asthma, Adult, [id number] Additional Instructions: Chest x-ray showed no acute cardiopulmonary abnormalities or pneumonitis. Therefore take medications with food, drink plenty of fluids, usual albuterol inhalers or nebulizers as needed, follow-up with your primary care physician in 5 to 7 days for reevaluation. Return to the ED immediately if symptoms get worse. Prescriptions: Prednisone [predniSONE 10 mg (6-Day Pack, 21 Tabs)] 10 mg PO .TAPER #21 ALBUTEROL NEB's [Proventil 0.083% NEBS] 3 ml IH TID PRN #75 ml PRN Reason: Wheezing Albuterol Sulfate [Proventil Hfa] 6.7 gm IH QID PRN #1 hfa.aer.ad PRN Reason: Wheezing Montelukast [Singulair] 10 mg PO QPM #30 tablet Benzonatate [Tessalon Perles] 100 mg PO Q8HR #30 capsule Referrals: [facility] [Provider Group] - 7-10 days Forms: Work/School Release Form(ED) Time of Disposition: 00:44 Print Language: TAIWANESE
== END 2021-10-25 01:45 | disposition home or self-care (01) ==
LOC: ED 19:38
DX: J45.901 Unspecified asthma with (acute) exacerbation (principal); R06.02 Shortness of breath
CPT/HCPCS: 71045; 94640; 99283